=== PATIENT | male | born 1980 | race Caucasian/White ===

== ENCOUNTER 2022-03-04 15:54 | Emergency (ER) | payer OTHER ==
--- NOTE | 2022-03-04 16:07 | ED Physician Documentation ---
PD HPI MHE - Stated complaint Stated Complaint: SI/ETOH - History obtained from History obtained from: Patient, EMS - History of Present Illness Primary symptom: Suicidal ideation Contributing factors: Substance abuse - ETOH - Additional information Additional information: Patient is a 41-year-old male brought in by EMS for suicidal ideation. He states he has had suicidal thoughts for many years. He states that he got out of rehab for alcohol today and went home and immediately started drinking. He states that his plan would be to slit his throat. He also states that he does not have a psychiatrist or therapist but has been tried on several medications in the past for depression. Patient states that he has never attempted suicide before. He also goes on to state that if he were to go home today he would not harm himself. He states that he just wants to know if his is cheating on him. Review of Systems Ten Systems: 10 systems reviewed and negative Constitutional: denies: Fever, Chills Nose: denies: Rhinorrhea / runny nose, Congestion GI: denies: Vomiting, Diarrhea Skin: denies: Rash Musculoskeletal: denies: Neck pain, Back pain Neurologic: denies: Headache Psychiatric: reports: Depressed, Suicidal PD PAST MEDICAL HISTORY - Past Medical History Past Medical History: Yes Psych: Depression - Present Medications Home Medications: Ambulatory Orders Medication Instructions Recorded Confirmed atenoloL [Tenormin] 25 mg PO DAILY 03/04/22 03/04/22 - Allergies Allergies/Adverse Reactions: Allergies Allergy/AdvReac Type Severity Reaction Status Date / Time venlafaxine [From Effexor] Allergy Anxiety Verified 03/04/22 16:02 zolpidem [From Ambien] Allergy Hallucinati Verified 03/04/22 16:02 ons - Living Situation Living Situation: reports: With spouse/s.o., With family Living Arrangement: reports: At home - Social History Does the pt smoke?: No Does the pt drink ETOH?: Yes ETOH Use: Liquor Does the pt have substance abuse?: No - Family History Family history: reports: Non contributory PD ED PE NORMAL - Vitals Vital signs reviewed: Yes - General General: Alert and oriented X 3, No acute distress - HEENT HEENT: Moist mucous membranes - Neck Neck: Supple, no meningeal sign - Cardiac Cardiac: RRR, Strong equal pulses - Respiratory Respiratory: No respiratory distress, Clear bilaterally - Abdomen Abdomen: Soft, Non tender, Non distended - Back Back: No spinal TTP - Derm Derm: Warm and dry - Extremities Extremities: No edema, No calf tenderness / cord - Neuro Neuro: Alert and oriented X 3 - Psych Psych: Normal mood, Normal affect Results - Vitals Vitals: Vital Signs - 24 hr 03/04/22 03/04/22 03/04/22 16:02 18:20 23:15 Temperature 36.8 C 36.6 C Heart Rate 77 98 78 Respiratory 20 18 16 Rate Blood Pressure 143/98 H 143/93 H 116/72 O2 Saturation 97 95 98 Oxygen O2 Source Room air - Labs Labs: Laboratory Tests 03/04/22 03/04/22 03/04/22 16:09 16:09 16:09 WBC 6.1 RBC 5.66 Hgb 17.7 Hct 51.6 MCV 91.2 MCH 31.3 H MCHC 34.3 RDW 15.2 H Plt Count 101 L MPV 10.7 Neut # (Auto) 2.4 Lymph # (Auto) 3.0 [place] # (Auto) 0.3 Eos # (Auto) 0.2 Baso # (Auto) 0.1 Absolute Nucleated RBC 0.00 Nucleated RBC % 0.0 Sodium 146 H Potassium 3.4 L Chloride 106 Carbon Dioxide 21 Anion Gap 19.0 H BUN 9 Creatinine 0.9 Estimated GFR (MDRD) 92 Glucose 90 Calcium 8.9 Total Bilirubin 1.0 AST 271 H ALT 180 H Alkaline Phosphatase 81 Total Protein 7.8 Albumin 3.9 Globulin 3.9 Albumin/Globulin Ratio 1.0 Lipase 40 TSH 0.57 Urine Color Urine Clarity Urine pH Ur Specific [place] Urine Protein Urine Glucose (UA) Urine Ketones Urine Occult Blood Urine Nitrite Urine Bilirubin Urine Urobilinogen Ur Leukocyte Esterase Ur Microscopic Review Urine Culture Comments Salicylates < 6.0 Urine Opiates Screen Ur Oxycodone Screen Urine Methadone Screen Ur Propoxyphene Screen Acetaminophen < 10 L Ur Barbiturates Screen Ur Tricyclics Screen Ur Phencyclidine Scrn Ur Amphetamine Screen U Methamphetamines Scrn U Benzodiazepines Scrn Urine Cocaine Screen U Cannabinoids Screen Ethyl Alcohol 382.5 SARS-CoV-2 (PCR) 03/04/22 03/04/22 16:30 19:20 WBC RBC Hgb Hct MCV MCH MCHC RDW Plt Count MPV Neut # (Auto) Lymph # (Auto) [place] # (Auto) Eos # (Auto) Baso # (Auto) Absolute Nucleated RBC Nucleated RBC % Sodium Potassium Chloride Carbon Dioxide Anion Gap BUN Creatinine Estimated GFR (MDRD) Glucose Calcium Total Bilirubin AST ALT Alkaline Phosphatase Total Protein Albumin Globulin Albumin/Globulin Ratio Lipase TSH Urine Color YELLOW Urine Clarity CLEAR Urine pH 6.5 Ur Specific [place] 1.020 Urine Protein NEGATIVE Urine Glucose (UA) NEGATIVE Urine Ketones 15 H Urine Occult Blood NEGATIVE Urine Nitrite NEGATIVE Urine Bilirubin NEGATIVE Urine Urobilinogen 0.2 (NORMAL) Ur Leukocyte Esterase NEGATIVE Ur Microscopic Review NOT INDICATED Urine Culture Comments NOT INDICATED Salicylates Urine Opiates Screen NEGATIVE Ur Oxycodone Screen NEGATIVE Urine Methadone Screen NEGATIVE Ur Propoxyphene Screen NEGATIVE Acetaminophen Ur Barbiturates Screen NEGATIVE Ur Tricyclics Screen NEGATIVE Ur Phencyclidine Scrn NEGATIVE Ur Amphetamine Screen NEGATIVE U Methamphetamines Scrn NEGATIVE U Benzodiazepines Scrn NEGATIVE Urine Cocaine Screen NEGATIVE U Cannabinoids Screen NEGATIVE Ethyl Alcohol SARS-CoV-2 (PCR) NOT DETECTED PD MEDICAL DECISION MAKING - ED course Complexity details: reviewed results, re-evaluated patient, considered bee chicas, d/w patient, d/w quantitative consultant ED course: 41-year-old male, heavily intoxicated with alcohol. He states that he was just released from rehab for alcohol today. He is already heavily intoxicated. He is threatening suicide by slitting his neck or his wrists. He attempted to leave the emergency department several times. He was threatening towards the nursing staff. He was loud and belligerent. He states that he is going to go home by himself. He states that his is not at home. Police were contacted and came to help get the patient back to his room. Patient continued to be belligerent with the police as well. He was placed into locked restraints for safety. The patient then requested to be chemically sedated as well. He states that he can "get out of the restraints anytime I want". The [employer] was contacted several times in order to contact his command to come and be with the patient. Eventually we were able to contact his command and his lieutenant will be coming to the emergency department. His lieutenant did come to the emergency department and spoke with the patient. There has been prior suicidal ideation, but he does not know of any suicide attempts. The patient will be allowed to sober in the emergency department and be reassessed once sober. Will likely need social work and/or telepsychiatry in the morning. Patient will be signed out to the oncoming emergency department physician. This document was made in part using voice recognition software. While efforts are made to proofread this document, sound alike and grammatical errors may occur. Departure - Departure Clinical Impression: Suicidal ideation, Transaminitis Alcohol intoxication Qualifiers: Complication of substance-induced condition: uncomplicated Qualified Code(s): F10.920 - Alcohol use, unspecified with intoxication, uncomplicated Condition: Stable
[2022-03-04 16:17] LABS: BASOPHILS # (AUTO) 0.1 10^3/uL (0.0-0.1); BASOPHILS % (AUTO) 1.5 %; EOSINOPHILS # (AUTO) 0.2 10^3/uL (0.0-0.7); EOSINOPHILS % (AUTO) 3.6 %; HCT - HEMATOCRIT 51.6 % (42.0-52.0); HGB - HEMOGLOBIN 17.7 g/dL (14.0-18.0); LYMPHOCYTES % (AUTO) 50.2 %; MEAN CORPUSCULAR HEMOGLOBIN 31.3 pg (27.0-31.0); MEAN CORPUSCULAR HGB CONC 34.3 g/dL (32.0-36.0); MEAN CORPUSCULAR VOLUME 91.2 fL (80.0-94.0); MEAN PLATELET VOLUME 10.7 fL (7.4-11.4); MONOCYTES # (AUTO) 0.3 10^3/uL (0.0-1.0); MONOCYTES % (AUTO) 5.5 %; NEUTROPHILS # (AUTO) 2.4 10^3/uL (1.5-6.6); PLT - PLATELET COUNT 101 10^3/uL (130-450); RED BLOOD COUNT 5.66 10^6/uL (4.70-6.10); RED CELL DISTRIBUTION WIDTH 15.2 % (12.0-15.0); WHITE BLOOD COUNT 6.1 x10^3/uL (4.8-10.8)
[2022-03-04 16:35] LABS: ACETAMINOPHEN < 10 ug/mL (10-30); ALBUMIN 3.9 g/dL (3.2-5.5); ALKALINE PHOSPHATASE 81 IU/L (42-121); ALT ALANINE AMINOTRANSFERASE 180 IU/L (10-60); AST ASPARTATE AMINOTRANSFERASE 271 IU/L (10-42); BUN - BLOOD UREA NITROGEN 9 mg/dL (6-20); CALCIUM 8.9 mg/dL (8.5-10.3); CARBON DIOXIDE - CO2 21 mmol/L (21-32); CHLORIDE 106 mmol/L (101-111); CREATININE 0.9 mg/dL (0.6-1.2); ETOH - ETHANOL 382.5 mg/dL; GFR - MDRD 92 (>89); GLUCOSE 90 mg/dL (70-100); LIPASE 40 U/L (22-51); POTASSIUM 3.4 mmol/L (3.5-5.0); SALICYLATE < 6.0 mg/dL; SODIUM 146 mmol/L (135-145); TOTAL PROTEIN 7.8 g/dL (6.7-8.2)
[2022-03-04] MEDS ORDERED: OLANZapine 10 MG VIAL IM STA (17:51)
[2022-03-04] MEDS ORDERED: NICOTINE 14 MG PATCH TOP STA (18:00)
[2022-03-04] MEDS ORDERED: OLANZapine ODT 5 MG TABLET TL STA (18:00)
--- NOTE | 2022-03-04 18:29 | ED Physician Documentation ---
Face to Face for Restraints - Immediate Situation Face to Face Evaluation Date: 03/04/22 Face to Face Evaluation Time: 18:07 Restraint Situation: Locking Patient's Reactions to the Intervention: Physically safe, Swearing, Demanding, Other ("I'm in the [employer], I can get out of these any time I want") - Behavioral Condition Attitude: Other (angry) Behavior: Uncooperative, Belligerent, Agitated Orientation: Person, Place, Time, Situation Mood: Angry - Evaluation Review of Systems: see note Pertinent History/Illicit Drugs/Medications/Results: alcohol - Plan Need to Continue or Terminate Violent or Chemical Restraint: continue restraints
[2022-03-04 19:26] LABS: MUDS CUTOFF CONCENTRATIONS CUTOFF CONC BELOW:
[2022-03-04 19:29] LABS: BILIRUBIN,URINE NEGATIVE (NEGATIVE); GLUCOSE, URINE (UA) NEGATIVE (NEGATIVE); KETONES,URINE (UA) 15 mg/dL (NEGATIVE); LEUKOCYTE ESTERASE, URINE NEGATIVE (NEGATIVE); NITRITE,URINE NEGATIVE (NEGATIVE); OCCULT BLOOD,URINE NEGATIVE (NEGATIVE); PH,URINE 6.5 PH (5.0-7.5); PROTEIN,URINE NEGATIVE (NEGATIVE); UROBILINOGEN,URINE 0.2 (NORMAL) E.U./dL (NORMAL)
[2022-03-04 19:33] LABS: CLARITY,URINE CLEAR (CLEAR)
[2022-03-04 19:42] LABS: AMPHETAMINE SCREEN,URINE NEGATIVE (NEGATIVE); BARBITURATE SCREEN,UR NEGATIVE (NEGATIVE); BENZODIAZEPINES SCREEN, URINE NEGATIVE (NEGATIVE); COCAINE SCREEN URINE NEGATIVE (NEGATIVE); METHADONE SCREEN, URINE NEGATIVE (NEGATIVE); METHAMPHETAMINES SCREEN, URINE NEGATIVE (NEGATIVE); OPIATE SCREEN, URINE NEGATIVE (NEGATIVE); OXYCODONE SCREEN, URINE NEGATIVE (NEGATIVE); PROPOXYPHENE SCREEN, URINE NEGATIVE (NEGATIVE); THC CANNABINOID SCREEN, URINE NEGATIVE (NEGATIVE); TRICYCLIC ANTIDEPRESSANT,URINE NEGATIVE (NEGATIVE)
[2022-03-05 09:50] VITALS: BP 151/87
--- NOTE | 2022-03-05 10:24 | ED Physician Documentation ---
ED Addendum - Addendum Addendum: 03/05/22 10:18 41-year-old Delano Elliott has presented to the emergency department yesterday evening in an intoxicated state wanting to harm himself. He was belligerent last night and required restraint. This morning he is sober and remorseful and denies any suicidal ideology. He does state that he has discovered that his has been cheating on him and at the time last night he was not able to confirm this with his and he drank heavily. He is here with his command and feels safe and no longer has any suicidal thoughts. He denies access to firearms in his home and he has the support of his command for 24 hour observation until [place] We do not have social work here today and we have made a safety plan with the patient and command confirmed by myself and the RN
== END 2022-03-05 10:35 | disposition home or self-care (01) ==
LOC: EDBD → ED 15:54
DX: R45.851 Suicidal ideations (principal); F10.129 Alcohol abuse with intoxication, unspecified; Y90.7 Blood alcohol level of 200-239 mg/100 ml; R74.01 Elevation of levels of liver transaminase levels; Z78.1 Physical restraint status; Z20.822 Contact with and (suspected) exposure to COVID-19
CPT/HCPCS: 36415; 80053; 80306; 80307; 80320; 80329; 81003; 83690; 84443; 85025; 87635; 93005; 99283; 99285; A9270; 81001; 87086

== ENCOUNTER 2022-10-26 08:00 | Outpatient (CLI) | payer OTHER ==
[2022-10-26 17:47] LABS: BASOPHILS # (AUTO) 0.1 10^3/uL (0.0-0.1); BASOPHILS % (AUTO) 0.7 %; EOSINOPHILS # (AUTO) 0.1 10^3/uL (0.0-0.7); EOSINOPHILS % (AUTO) 0.7 %; HGB - HEMOGLOBIN 16.3 g/dL (14.0-18.0); LYMPHOCYTES # (AUTO) 0.9 10^3/uL (1.5-3.5); LYMPHOCYTES % (AUTO) 12.5 %; MEAN CORPUSCULAR HEMOGLOBIN 29.6 pg (27.0-31.0); MEAN CORPUSCULAR HGB CONC 34.7 g/dL (32.0-36.0); MEAN CORPUSCULAR VOLUME 85.3 fL (80.0-94.0); MEAN PLATELET VOLUME 11.7 fL (7.4-11.4); MONOCYTES # (AUTO) 0.3 10^3/uL (0.0-1.0); MONOCYTES % (AUTO) 4.4 %; NEUTROPHILS # (AUTO) 5.5 10^3/uL (1.5-6.6); NEUTROPHILS % (AUTO) 81.4 %; PLT - PLATELET COUNT 77 10^3/uL (130-450); RED BLOOD COUNT 5.51 10^6/uL (4.70-6.10); RED CELL DISTRIBUTION WIDTH 14.4 % (12.0-15.0); WHITE BLOOD COUNT 6.8 x10^3/uL (4.8-10.8)
[2022-10-26 17:54] LABS: ALBUMIN 4.8 g/dL (3.2-5.5); ALBUMIN/GLOBULIN RATIO 1.5 (1.0-2.2); BILIRUBIN,TOTAL 2.1 mg/dL (0.2-1.0); CREATININE 0.8 mg/dL (0.6-1.2); POTASSIUM 3.8 mmol/L (3.5-5.0); TOTAL PROTEIN 7.9 g/dL (6.7-8.2)
== END 2022-10-26 23:59 | disposition home or self-care (01) ==
LOC: LAB.N 08:00
PROVIDERS: ATTEND Nurse Practitioner
DX: K52.9 Noninfective gastroenteritis and colitis, unspecified (principal)
CPT/HCPCS: 36415; 80053; 82150; 83690; 85025

== ENCOUNTER 2023-03-07 | Outpatient (CLI) | payer OTHER | END 2023-03-07 23:59 | disposition critical access hospital (66) | LOC: EMS | DX: R41.82 Altered mental status, unspecified (principal); R09.89 Other specified symptoms and signs involving the circulatory and respiratory systems; T43.592A Poisoning by other antipsychotics and neuroleptics, intentional self-harm, initial encounter; Z78.1 Physical restraint status | CPT/HCPCS: A0425; A0427 ==

== ENCOUNTER 2023-03-07 00:25 | Emergency (ER) | payer OTHER ==
--- NOTE | 2023-03-07 00:38 | ED Physician Documentation ---
PD HPI MHE - Stated complaint Stated Complaint: SI/OD - History obtained from History obtained from: Patient, EMS - Additional information Additional information: HPI is from patient as well as from EMS. EMS says that 911 was called for medication overdose. Per EMS report, patient had texted his girlfriend earlier this evening a message with content that implied thoughts of self-harm. When medics arrived, they found patient unconscious and Minimally responsive to painful stimulus. His breaths were sonorous, and thus they inserted a nasal trumpet for airway protection. Upon doing so, the patient did become more awake and alert. EMS reports that patient overdosed on hydroxyzine. On my interview of the patient, patient tells me "I drank too much", "I am tired of my life". He says he drank approximately a fifth of vodka during the evening tonight. He denies suicidal intent, but tells me he has had suicidal thoughts for the past few years. He says he took 4 hydroxyzine at once tonight, but that he did so because he was anxious and wanted to sleep. He insists that because the instructions for the hydroxyzine are 1 tablet every 6 hours, he can take up to 4 per day, and thus he feels that taking 4 at once in a 24 period is not an overdose. EMS says that during transport to the hospital, the patient did say to them that he was feeling suicidal. Review of Systems Cardiac: reports: Reviewed and negative Respiratory: reports: Reviewed and negative GI: reports: Reviewed and negative PD PAST MEDICAL HISTORY - Past Medical History Cardiovascular: Hypertension Respiratory: None Neuro: None Endocrine/Autoimmune: None GI: None : None HEENT: None Psych: Depression Musculoskeletal: None Derm: None - Past Surgical History Past Surgical History: Yes - Present Medications Home Medications: Ambulatory Orders Medication Instructions Recorded Confirmed atenoloL [Tenormin] 25 mg PO DAILY 03/04/22 03/04/22 - Allergies Allergies/Adverse Reactions: Allergies Allergy/AdvReac Type Severity Reaction Status Date / Time alprazolam [From Xanax] Allergy Hallucinati Verified 03/07/23 01:08 ons venlafaxine [From Effexor] Allergy Anxiety Verified 03/07/23 01:08 zolpidem [From Ambien] Allergy Hallucinati Verified 03/07/23 01:08 ons - Social History Does the pt smoke?: No Smoking Status: Former smoker Does the pt drink ETOH?: Yes Does the pt have substance abuse?: No - Immunizations Immunizations are current?: Yes PD ED PE NORMAL - Vitals Vital signs reviewed: Yes - General General: Alert and oriented X 3, No acute distress, Well developed/nourished - Cardiac Cardiac: RRR, No murmur - Respiratory Respiratory: No respiratory distress, Clear bilaterally - Abdomen Abdomen: Soft, Non tender - Neuro Neuro: Alert and oriented X 3 Eye Opening: Spontaneous Motor: Obeys Commands Verbal: Oriented GCS Score: 15 Results - Vitals Vitals: Vital Signs - 24 hr 03/07/23 03/07/23 00:51 02:06 Temperature 36.9 C Heart Rate 98 100 Respiratory 18 18 Rate Blood Pressure 146/93 H 129/88 H O2 Saturation 97 92 Oxygen O2 Source Room air - Labs Labs: Laboratory Tests 03/07/23 03/07/23 03/07/23 00:45 01:48 01:48 WBC 5.4 RBC 4.86 Hgb 14.4 Hct 43.5 MCV 89.5 MCH 29.6 MCHC 33.1 RDW 14.9 Plt Count 83 L MPV 10.3 Neut # (Auto) 3.3 Lymph # (Auto) 1.5 [place] # (Auto) 0.4 Eos # (Auto) 0.2 Baso # (Auto) 0.1 Absolute Nucleated RBC 0.00 Nucleated RBC % 0.0 Sodium 144 Potassium 3.5 Chloride 107 Carbon Dioxide 23 Anion Gap 14.0 H BUN 7 Creatinine 0.7 Estimated GFR (MDRD) 123 Glucose 113 H Calcium 7.9 L Total Bilirubin 1.2 H AST 185 H ALT 61 H Alkaline Phosphatase 165 H Total Protein 7.3 Albumin 3.3 Globulin 4.0 Albumin/Globulin Ratio 0.8 L Lipase 44 TSH Urine Color YELLOW Urine Clarity CLEAR Urine pH 7.0 Ur Specific [place] 1.010 Urine Protein NEGATIVE Urine Glucose (UA) NEGATIVE Urine Ketones [place] Urine Occult Blood NEGATIVE Urine Nitrite NEGATIVE Urine Bilirubin NEGATIVE Urine Urobilinogen 0.2 (NORMAL) Ur Leukocyte Esterase NEGATIVE Ur Microscopic Review NOT INDICATED Urine Culture Comments NOT INDICATED Salicylates < 6.0 Urine Opiates Screen NEGATIVE Ur Oxycodone Screen NEGATIVE Urine Methadone Screen NEGATIVE Ur Propoxyphene Screen NEGATIVE Acetaminophen < 10 L Ur Barbiturates Screen NEGATIVE Ur Tricyclics Screen NEGATIVE Ur Phencyclidine Scrn NEGATIVE Ur Amphetamine Screen NEGATIVE U Methamphetamines Scrn NEGATIVE U Benzodiazepines Scrn NEGATIVE Urine Cocaine Screen NEGATIVE U Cannabinoids Screen NEGATIVE Ethyl Alcohol 321.6 03/07/23 01:48 WBC RBC Hgb Hct MCV MCH MCHC RDW Plt Count MPV Neut # (Auto) Lymph # (Auto) [place] # (Auto) Eos # (Auto) Baso # (Auto) Absolute Nucleated RBC Nucleated RBC % Sodium Potassium Chloride Carbon Dioxide Anion Gap BUN Creatinine Estimated GFR (MDRD) Glucose Calcium Total Bilirubin AST ALT Alkaline Phosphatase Total Protein Albumin Globulin Albumin/Globulin Ratio Lipase TSH 1.97 Urine Color Urine Clarity Urine pH Ur Specific [place] Urine Protein Urine Glucose (UA) Urine Ketones Urine Occult Blood Urine Nitrite Urine Bilirubin Urine Urobilinogen Ur Leukocyte Esterase Ur Microscopic Review Urine Culture Comments Salicylates Urine Opiates Screen Ur Oxycodone Screen Urine Methadone Screen Ur Propoxyphene Screen Acetaminophen Ur Barbiturates Screen Ur Tricyclics Screen Ur Phencyclidine Scrn Ur Amphetamine Screen U Methamphetamines Scrn U Benzodiazepines Scrn Urine Cocaine Screen U Cannabinoids Screen Ethyl Alcohol PD Medical Decision Making - ED course Complexity details: reviewed old records (reviewed EDMD notes from [facility] ED visit one year ago for similar issues), reviewed results, re-evaluated patient, considered differential, d/w patient ED course: On my HPI, patient strongly denies suicidal intent and repeatedly requests to be discharged. His serum alcohol level is over .320, which would indicate high potential for impaired judgment and uncertainty in reliability/veracity of HPI from patient. Thus, he is held in ED overnight pending sobriety when he can be reassessed with more confidence regarding answers he provides. Care of patient is turned over to oncoming ED physician (Dr. Saab) at end of my shift.
[2023-03-07 01:56] LABS: BASOPHILS # (AUTO) 0.1 10^3/uL (0.0-0.1); BASOPHILS % (AUTO) 1.3 %; EOSINOPHILS # (AUTO) 0.2 10^3/uL (0.0-0.7); EOSINOPHILS % (AUTO) 3.2 %; HCT - HEMATOCRIT 43.5 % (42.0-52.0); HGB - HEMOGLOBIN 14.4 g/dL (14.0-18.0); LYMPHOCYTES # (AUTO) 1.5 10^3/uL (1.5-3.5); LYMPHOCYTES % (AUTO) 27.7 %; MEAN CORPUSCULAR HEMOGLOBIN 29.6 pg (27.0-31.0); MEAN CORPUSCULAR HGB CONC 33.1 g/dL (32.0-36.0); MEAN CORPUSCULAR VOLUME 89.5 fL (80.0-94.0); MEAN PLATELET VOLUME 10.3 fL (7.4-11.4); MONOCYTES # (AUTO) 0.4 10^3/uL (0.0-1.0); MONOCYTES % (AUTO) 6.7 %; NEUTROPHILS # (AUTO) 3.3 10^3/uL (1.5-6.6); NEUTROPHILS % (AUTO) 60.9 %; PLT - PLATELET COUNT 83 10^3/uL (130-450); RED BLOOD COUNT 4.86 10^6/uL (4.70-6.10); RED CELL DISTRIBUTION WIDTH 14.9 % (12.0-15.0); WHITE BLOOD COUNT 5.4 x10^3/uL (4.8-10.8)
[2023-03-07 02:08] LABS: ACETAMINOPHEN < 10 ug/mL (10-30); ALBUMIN 3.3 g/dL (3.2-5.5); ALBUMIN/GLOBULIN RATIO 0.8 (1.0-2.2); ALKALINE PHOSPHATASE 165 IU/L (42-121); ALT ALANINE AMINOTRANSFERASE 61 IU/L (10-60); AST ASPARTATE AMINOTRANSFERASE 185 IU/L (10-42); BILIRUBIN,TOTAL 1.2 mg/dL (0.2-1.0); BUN - BLOOD UREA NITROGEN 7 mg/dL (6-20); CALCIUM 7.9 mg/dL (8.5-10.3); CARBON DIOXIDE - CO2 23 mmol/L (21-32); CHLORIDE 107 mmol/L (101-111); CREATININE 0.7 mg/dL (0.6-1.2); ETOH - ETHANOL 321.6 mg/dL; GFR - MDRD 123 (>89); GLUCOSE 113 mg/dL (70-100); LIPASE 44 U/L (22-51); POTASSIUM 3.5 mmol/L (3.5-5.0); SALICYLATE < 6.0 mg/dL; SODIUM 144 mmol/L (135-145); TOTAL PROTEIN 7.3 g/dL (6.7-8.2)
[2023-03-07 02:10] LABS: MUDS CUTOFF CONCENTRATIONS CUTOFF CONC BELOW:
[2023-03-07 02:11] LABS: BILIRUBIN,URINE NEGATIVE (NEGATIVE); GLUCOSE, URINE (UA) NEGATIVE (NEGATIVE); KETONES,URINE (UA) TRACE mg/dL (NEGATIVE); LEUKOCYTE ESTERASE, URINE NEGATIVE (NEGATIVE); NITRITE,URINE NEGATIVE (NEGATIVE); OCCULT BLOOD,URINE NEGATIVE (NEGATIVE); PROTEIN,URINE NEGATIVE (NEGATIVE); UROBILINOGEN,URINE 0.2 (NORMAL) E.U./dL (NORMAL)
[2023-03-07 02:13] LABS: CLARITY,URINE CLEAR (CLEAR)
[2023-03-07 02:22] LABS: AMPHETAMINE SCREEN,URINE NEGATIVE (NEGATIVE); BARBITURATE SCREEN,UR NEGATIVE (NEGATIVE); BENZODIAZEPINES SCREEN, URINE NEGATIVE (NEGATIVE); COCAINE SCREEN URINE NEGATIVE (NEGATIVE); METHADONE SCREEN, URINE NEGATIVE (NEGATIVE); METHAMPHETAMINES SCREEN, URINE NEGATIVE (NEGATIVE); OPIATE SCREEN, URINE NEGATIVE (NEGATIVE); OXYCODONE SCREEN, URINE NEGATIVE (NEGATIVE); PROPOXYPHENE SCREEN, URINE NEGATIVE (NEGATIVE); THC CANNABINOID SCREEN, URINE NEGATIVE (NEGATIVE); TRICYCLIC ANTIDEPRESSANT,URINE NEGATIVE (NEGATIVE)
--- NOTE | 2023-03-07 14:02 | ED Physician Documentation ---
ED Addendum - Addendum Addendum: 03/07/23 14:00 Social work evaluated the patient. He is not suicidal or homicidal. Contracts for safety. [place] He is going to rejoin the sale program for alcoholism. His feels comfortable with him at home and is comfortable taking responsibility for him. Patient will be discharged. This document was made in part using voice recognition software. While efforts are made to proofread this document, sound alike and grammatical errors may occur. Departure - Departure Disposition: 01 Home, Self Care Clinical Impression: Suicidal ideation Alcohol intoxication Qualifiers: Complication of substance-induced condition: uncomplicated Qualified Code(s): F10.920 - Alcohol use, unspecified with intoxication, uncomplicated Condition: Good Instructions: ED Alcohol Intoxication Follow-Up: [facility] [place] [Provider Group] - Within 3 Days Comments: [place]. Please follow-up as instructed by social work. You need to abstain from alcohol. Crisis Line and is available to talk to someone [email or web address] is also available to chat with someone online if you prefer. There are also many resources on this website and apps for your phone to help with your mental health You can also text the word START to [phone] to chat with someome via text.
[2023-03-07 14:18] VITALS: BP 156/103
== END 2023-03-07 14:22 | disposition home or self-care (01) ==
LOC: EDUNIT# → ED 00:25
DX: R45.851 Suicidal ideations (principal); F10.129 Alcohol abuse with intoxication, unspecified; Y90.8 Blood alcohol level of 240 mg/100 ml or more; Z87.891 Personal history of nicotine dependence
CPT/HCPCS: 36415; 80053; 80306; 80307; 80320; 80329; 81001; 81003; 83690; 84443; 85025; 87086; 99283

== ENCOUNTER 2023-08-15 01:32 | Outpatient (CLI) | payer OTHER | END 2023-08-15 01:33 | disposition critical access hospital (66) | LOC: EMS 01:32 | DX: K92.0 Hematemesis (principal) | CPT/HCPCS: A0425; A0429 ==

== ENCOUNTER 2023-08-15 01:55 | Emergency (ER) | payer OTHER ==
--- NOTE | 2023-08-15 02:01 | ED Physician Documentation ---
PD HPI NVD - Stated complaint Stated Complaint: VOMITING BLOOD - History obtained from History obtained from: Patient, EMS - Additonal information Additional information: BIBA. HPI from EMS, patient. Patient complains of hematemesis, several episodes starting at approximately 5 PM this afternoon. He is subsequently had 2-3 episodes of bright red blood per rectum. He reports noticing clots of blood in both the vomitus as well as the blood per rectum. Denies any pain. Patient was transferred from [facility] emergency department on 08/03/2023 to [facility] ([facility]) where he underwent EGD and banding of esophageal varices. Patient has history of alcoholism, admits to drinking alcohol tonight, as well. He drinks approximately a fifth of hard liquor per day. CT A/P performed at [facility] during inpatient stay revealed evidence of severe cirrhosis, fatty infiltration, minimal ascites, portal hypertension, extensive varices. Patient's prescription medications include naltrexone and Antabuse, but he stopped these latter 2 medications. Otherwise, his prescription medications that he is continue take are BuSpar, trazodone, hydroxyzine. Review of Systems Constitutional: reports: Reviewed and negative Cardiac: reports: Reviewed and negative Respiratory: reports: Reviewed and negative GI: reports: Hematemesis, Bloody / black stool. denies: Abdominal Pain, Abdominal Swelling, Nausea, Vomiting, Constipation, Diarrhea : denies: Dysuria, Frequency Skin: reports: Reviewed and negative Musculoskeletal: reports: Reviewed and negative Neurologic: reports: Reviewed and negative PD PAST MEDICAL HISTORY - Past Medical History Cardiovascular: Hypertension Respiratory: None Neuro: None Endocrine/Autoimmune: None GI: None : None HEENT: None Psych: Depression Musculoskeletal: None Derm: None - Past Surgical History Past Surgical History: Yes - Present Medications Home Medications: Ambulatory Orders Medication Instructions Recorded Confirmed atenoloL [Tenormin] 25 mg PO DAILY 03/04/22 03/04/22 - Allergies Allergies/Adverse Reactions: Allergies Allergy/AdvReac Type Severity Reaction Status Date / Time alprazolam [From Xanax] Allergy Hallucinati Verified 08/15/23 02:08 ons venlafaxine [From Effexor] Allergy Anxiety Verified 08/15/23 02:08 zolpidem [From Ambien] Allergy Hallucinati Verified 08/15/23 02:08 ons - Social History Does the pt smoke?: No Smoking Status: Former smoker Does the pt drink ETOH?: Yes Does the pt have substance abuse?: No - Immunizations Immunizations are current?: Yes PD ED PE NORMAL - Vitals Vital signs reviewed: Yes - General General: Alert and oriented X 3, No acute distress, Well developed/nourished - HEENT HEENT: Moist mucous membranes - Cardiac Cardiac: No murmur - Respiratory Respiratory: No respiratory distress, Clear bilaterally - Abdomen Abdomen: Soft, Non tender, Non distended - Derm Derm: Normal color, Warm and dry - Neuro Neuro: Alert and oriented X 3 PD ED PE EXPANDED - Cardiac Cardiac: Tachy, Regular Rhythm Results - Vitals Vitals: Vital Signs - 24 hr 08/15/23 08/15/23 08/15/23 02:04 03:32 03:55 Temperature 36.4 C L 37 C Heart Rate 120 H 100 101 H Respiratory 22 20 20 Rate Blood Pressure 131/86 H 128/74 127/85 H O2 Saturation 99 100 100 08/15/23 06:03 Temperature Heart Rate 105 H Respiratory 17 Rate Blood Pressure 115/71 O2 Saturation 94 Oxygen O2 Source Room air - Labs Labs: Laboratory Tests 08/15/23 08/15/23 08/15/23 02:13 02:13 02:13 WBC 9.2 RBC 3.49 L Hgb 11.0 L Hct 33.0 L MCV 94.6 H MCH 31.5 H MCHC 33.3 RDW 20.1 H Plt Count 111 L MPV 11.3 Neut # (Auto) 6.1 Lymph # (Auto) 1.9 [place] # (Auto) 0.9 Eos # (Auto) 0.1 Baso # (Auto) 0.2 H Absolute Nucleated RBC 0.00 Nucleated RBC % 0.0 Manual Slide Review Indicated Platelet Estimate NORMAL (130-450,000) RBC Morph Micro Appear 1+ ANISOCYTOSIS PT 17.7 H INR 1.6 H APTT 32.5 Sodium 144 Potassium 3.5 Chloride 108 Carbon Dioxide 17 L Anion Gap 19.0 H BUN 6 Creatinine 0.8 Estimated GFR (MDRD) 105 Glucose 151 H Calcium 7.6 L Total Bilirubin 3.6 H AST 195 H ALT 45 Alkaline Phosphatase 110 Total Protein 5.5 L Albumin 2.8 L Globulin 2.7 Albumin/Globulin Ratio 1.0 Lipase 15 Urine Color Urine Clarity Urine pH Ur Specific [place] Urine Protein Urine Glucose (UA) Urine Ketones Urine Occult Blood Urine Nitrite Urine Bilirubin Urine Urobilinogen Ur Leukocyte Esterase Urine RBC Urine WBC Ur Squamous Epith Cells Urine Bacteria Urine Casts Nasal Adenovirus (PCR) Nasal B. parapertussis DNA (PCR) Nasal Coronavir 229E PCR Nasal Coronavir HKU1 PCR Nasal Coronavir NL63 PCR Nasal Coronavir OC43 PCR Nasal Enterovir/Rhinovir PCR Nasal Influenza B PCR Nasal Influenza A PCR Nasal Parainfluen 1 PCR Nasal Parainfluen 2 PCR Nasal Parainfluen 3 PCR Nasal Parainfluen 4 PCR Nasal RSV (PCR) Nasal B.pertussis DNA PCR Nasal C.pneumoniae (PCR) Ag Human Metapneumo PCR Nasal M.pneumoniae (PCR) Nasal SARS-CoV-2 (PCR) Ethyl Alcohol 239.1 Blood Type Blood Type Recheck Antibody Screen 08/15/23 08/15/23 08/15/23 02:13 02:43 02:45 WBC RBC Hgb Hct MCV MCH MCHC RDW Plt Count MPV Neut # (Auto) Lymph # (Auto) [place] # (Auto) Eos # (Auto) Baso # (Auto) Absolute Nucleated RBC Nucleated RBC % Manual Slide Review Platelet Estimate RBC Morph Micro Appear PT INR APTT Sodium Potassium Chloride Carbon Dioxide Anion Gap BUN Creatinine Estimated GFR (MDRD) Glucose Calcium Total Bilirubin AST ALT Alkaline Phosphatase Total Protein Albumin Globulin Albumin/Globulin Ratio Lipase Urine Color DARK YELLOW Urine Clarity CLEAR Urine pH 6.5 Ur Specific [place] 1.020 Urine Protein 30 H Urine Glucose (UA) NEGATIVE Urine Ketones 15 H Urine Occult Blood NEGATIVE Urine Nitrite NEGATIVE Urine Bilirubin MODERATE H Urine Urobilinogen 1 (NORMAL) Ur Leukocyte Esterase NEGATIVE Urine RBC 0-5 Urine WBC 0-3 Ur Squamous Epith Cells NONE SEEN Urine Bacteria None Seen Urine Casts 6-10 Fine Granular Nasal Adenovirus (PCR) Nasal B. parapertussis DNA (PCR) Nasal Coronavir 229E PCR Nasal Coronavir HKU1 PCR Nasal Coronavir NL63 PCR Nasal Coronavir OC43 PCR Nasal Enterovir/Rhinovir PCR Nasal Influenza B PCR Nasal Influenza A PCR Nasal Parainfluen 1 PCR Nasal Parainfluen 2 PCR Nasal Parainfluen 3 PCR Nasal Parainfluen 4 PCR Nasal RSV (PCR) Nasal B.pertussis DNA PCR Nasal C.pneumoniae (PCR) Ag Human Metapneumo PCR Nasal M.pneumoniae (PCR) Nasal SARS-CoV-2 (PCR) Ethyl Alcohol Blood Type O POSITIVE Blood Type Recheck O POSITIVE Antibody Screen NEGATIVE 08/15/23 08/15/23 05:30 06:12 WBC 7.6 RBC 3.33 L Hgb 10.4 L Hct 30.8 L MCV 92.5 MCH 31.2 H MCHC 33.8 RDW 20.1 H Plt Count 101 L MPV 11.1 Neut # (Auto) 6.4 Lymph # (Auto) 0.7 L [place] # (Auto) 0.3 Eos # (Auto) 0.0 Baso # (Auto) 0.1 Absolute Nucleated RBC 0.00 Nucleated RBC % 0.0 Manual Slide Review Indicated Platelet Estimate DECREASED (<130,000) RBC Morph Micro Appear 1+ OVALOCYTES PT INR APTT Sodium Potassium Chloride Carbon Dioxide Anion Gap BUN Creatinine Estimated GFR (MDRD) Glucose Calcium Total Bilirubin AST ALT Alkaline Phosphatase Total Protein Albumin Globulin Albumin/Globulin Ratio Lipase Urine Color Urine Clarity Urine pH Ur Specific [place] Urine Protein Urine Glucose (UA) Urine Ketones Urine Occult Blood Urine Nitrite Urine Bilirubin Urine Urobilinogen Ur Leukocyte Esterase Urine RBC Urine WBC Ur Squamous Epith Cells Urine Bacteria Urine Casts Nasal Adenovirus (PCR) NOT DETECTED Nasal B. parapertussis DNA (PCR) NOT DETECTED Nasal Coronavir 229E PCR NOT DETECTED Nasal Coronavir HKU1 PCR NOT DETECTED Nasal Coronavir NL63 PCR NOT DETECTED Nasal Coronavir OC43 PCR NOT DETECTED Nasal Enterovir/Rhinovir PCR NOT DETECTED Nasal Influenza B PCR NOT DETECTED Nasal Influenza A PCR NOT DETECTED Nasal Parainfluen 1 PCR NOT DETECTED Nasal Parainfluen 2 PCR NOT DETECTED Nasal Parainfluen 3 PCR NOT DETECTED Nasal Parainfluen 4 PCR NOT DETECTED Nasal RSV (PCR) NOT DETECTED Nasal B.pertussis DNA PCR NOT DETECTED Nasal C.pneumoniae (PCR) NOT DETECTED Ag Human Metapneumo PCR NOT DETECTED Nasal M.pneumoniae (PCR) NOT DETECTED Nasal SARS-CoV-2 (PCR) NOT DETECTED Ethyl Alcohol Blood Type Blood Type Recheck Antibody Screen PD Medical Decision Making - ED course Complexity details: reviewed old records, reviewed results, re-evaluated patient, considered differential, d/w patient ED course: Records from his inpatient stay at [facility] were requested, faxed to this ED, and reviewed by me. On ED arrival, there is a small amount of blood on the EMS stretcher; I do note half-dollar sized clot of blood within the vomitus, as well. The patient did not have any more episodes of vomiting nor hematemesis during the rest of my shift. However, he had 3-4 episodes of bright red blood per rectum with clots. He was tachycardic during my shift with heart rates from the 110s to the 130s. His blood pressures were normal throughout my shift. Patient's alcohol level is 0.239. Hemoglobin is 11, and a 4-hour repeat is 10.4. INR is elevated at 1.6. Bilirubin 3.6; the notes from his inpatient stay at [facility] indicate his bilirubin was as high as 7. AST is minimally elevated (195), ALT is normal (45). Lipase is also normal (15). Mild thrombocytopenia with platelet count of 111, 101 on the 4-hour repeat. IV Protonix drip, octreotide drip are initiated and maintained during ER stay. [facility] is contacted; they said they do not have any beds and do not think they will be able to accommodate this patient for transfer. [facility] and attempt to find an appropriate bed. This process is still ongoing at the end of my shift, and thus the care of the patient is turned over to the oncoming ED physician (Dr. Hurst).
[2023-08-15] MEDS ORDERED: PANTOPRAZOLE 80 MG in SODIUM CHLORIDE 0.9% 100ML 100 ML IV STA (02:19)
[2023-08-15 02:43] LABS: BASOPHILS # (AUTO) 0.2 10^3/uL (0.0-0.1); BASOPHILS % (AUTO) 2.3 %; EOSINOPHILS # (AUTO) 0.1 10^3/uL (0.0-0.7); EOSINOPHILS % (AUTO) 1.1 %; LYMPHOCYTES # (AUTO) 1.9 10^3/uL (1.5-3.5); LYMPHOCYTES % (AUTO) 20.4 %; MEAN CORPUSCULAR HEMOGLOBIN 31.5 pg (27.0-31.0); MEAN CORPUSCULAR HGB CONC 33.3 g/dL (32.0-36.0); MEAN CORPUSCULAR VOLUME 94.6 fL (80.0-94.0); MEAN PLATELET VOLUME 11.3 fL (7.4-11.4); MONOCYTES # (AUTO) 0.9 10^3/uL (0.0-1.0); MONOCYTES % (AUTO) 9.4 %; NEUTROPHILS # (AUTO) 6.1 10^3/uL (1.5-6.6); NEUTROPHILS % (AUTO) 66.3 %; PLT - PLATELET COUNT 111 10^3/uL (130-450); RED BLOOD COUNT 3.49 10^6/uL (4.70-6.10); RED CELL DISTRIBUTION WIDTH 20.1 % (12.0-15.0); WHITE BLOOD COUNT 9.2 x10^3/uL (4.8-10.8)
[2023-08-15 02:47] LABS: SLIDE REVIEW? Indicated
[2023-08-15] MEDS ORDERED: PANTOPRAZOLE 40 MG VIAL ONE (02:48)
[2023-08-15 03:00] LABS: PARTIAL THROMBOPLASTIN TIME 32.5 secs (24.9-33.3)
[2023-08-15 03:04] LABS: INR 1.6 (0.8-1.2); PT - PROTHROMBIN TIME 17.7 secs (9.9-12.6)
[2023-08-15 03:12] LABS: PLATELET ESTIMATE, MANUAL NORMAL (130-450,000) (NORMAL); RBC MORPHOLOGY (MULTIPLE) 1+ ANISOCYTOSIS (NORMAL)
[2023-08-15 03:20] LABS: ALBUMIN 2.8 g/dL (3.2-5.5); BILIRUBIN,TOTAL 3.6 mg/dL (0.2-1.0); CALCIUM 7.6 mg/dL (8.5-10.3); CREATININE 0.8 mg/dL (0.6-1.3); ETOH - ETHANOL 239.1 mg/dL; POTASSIUM 3.5 mmol/L (3.5-4.5); TOTAL PROTEIN 5.5 g/dL (6.4-8.9)
[2023-08-15 03:56] LABS: GLUCOSE, URINE (UA) NEGATIVE (NEGATIVE); KETONES,URINE (UA) 15 mg/dL (NEGATIVE); LEUKOCYTE ESTERASE, URINE NEGATIVE (NEGATIVE); NITRITE,URINE NEGATIVE (NEGATIVE); OCCULT BLOOD,URINE NEGATIVE (NEGATIVE); PH,URINE 6.5 PH (5.0-7.5); PROTEIN,URINE 30 mg/dL (NEGATIVE); UROBILINOGEN,URINE 1 (NORMAL) E.U./dL (NORMAL)
[2023-08-15 04:05] LABS: BILIRUBIN,URINE MODERATE (NEGATIVE); CLARITY,URINE CLEAR (CLEAR); ICTOTEST,URINE POSITIVE
[2023-08-15 04:06] LABS: BACTERIA,URINE None Seen /HPF (None Seen); CASTS, URINE 6-10 Fine Granular /LPF; RBC,URINE 0-5 /HPF (0-5); SQUAMOUS EPITHELIAL CELL,UR NONE SEEN (<= Few); WBC,URINE 0-3 /HPF (0-3)
[2023-08-15] MEDS ORDERED: OCTREOTIDE 500 MCG in SODIUM CHLORIDE 0.9% 100ML 95 ML IV STA (04:41)
[2023-08-15] MEDS ORDERED: ONDANSETRON 4 MG/2 ML VIAL IVP STA (05:40)
[2023-08-15] MEDS ORDERED: LORazepam 2 MG/ML VIAL IVP STA (05:45)
[2023-08-15 06:21] LABS: BASOPHILS # (AUTO) 0.1 10^3/uL (0.0-0.1); BASOPHILS % (AUTO) 1.3 %; EOSINOPHILS % (AUTO) 0.1 %; HCT - HEMATOCRIT 30.8 % (42.0-52.0); HGB - HEMOGLOBIN 10.4 g/dL (14.0-18.0); LYMPHOCYTES # (AUTO) 0.7 10^3/uL (1.5-3.5); LYMPHOCYTES % (AUTO) 9.4 %; MEAN CORPUSCULAR HEMOGLOBIN 31.2 pg (27.0-31.0); MEAN CORPUSCULAR HGB CONC 33.8 g/dL (32.0-36.0); MEAN CORPUSCULAR VOLUME 92.5 fL (80.0-94.0); MEAN PLATELET VOLUME 11.1 fL (7.4-11.4); MONOCYTES # (AUTO) 0.3 10^3/uL (0.0-1.0); MONOCYTES % (AUTO) 4.2 %; NEUTROPHILS # (AUTO) 6.4 10^3/uL (1.5-6.6); NEUTROPHILS % (AUTO) 84.5 %; PLT - PLATELET COUNT 101 10^3/uL (130-450); RED BLOOD COUNT 3.33 10^6/uL (4.70-6.10); RED CELL DISTRIBUTION WIDTH 20.1 % (12.0-15.0); WHITE BLOOD COUNT 7.6 x10^3/uL (4.8-10.8)
[2023-08-15 06:34] LABS: B. PARAPERTUSSIS- RESP PCR PAN NOT DETECTED; B. PERTUSSIS- RESP PCR PANEL NOT DETECTED; C. PNEUMONIAE- RESP PCR PANEL NOT DETECTED; CORONAVIRUS 229E-RESP PCR NOT DETECTED; CORONAVIRUS HKU1-RESP PCR NOT DETECTED; CORONAVIRUS NL63-RESP PCR NOT DETECTED; CORONAVIRUS OC43-RESP PCR NOT DETECTED; HUMAN METAPNEUMOVIRUS NOT DETECTED; INFLUENZA A- RESP PCR PANEL NOT DETECTED; INFLUENZA B - RESP PCR PANEL NOT DETECTED; M. PNEUMONIAE- RESP PCR PANEL NOT DETECTED; PARAINFLUENZA VIRUS 1 NOT DETECTED; PARAINFLUENZA VIRUS 2 NOT DETECTED; PARAINFLUENZA VIRUS 3 NOT DETECTED; PARAINFLUENZA VIRUS 4 NOT DETECTED; RHINOVIRUS/ENTEROVIRUS NOT DETECTED; RSV- RESP PCR PANEL NOT DETECTED; SARS-CoV-2 -RESP PCR PANEL NOT DETECTED
[2023-08-15 06:41] LABS: SLIDE REVIEW? Indicated
[2023-08-15 07:02] LABS: PLATELET ESTIMATE, MANUAL DECREASED (<130,000) (NORMAL)
[2023-08-15 08:18] VITALS: BP 118/81; O2SAT 96
--- NOTE | 2023-08-15 08:40 | ED Physician Documentation ---
ED Addendum - Addendum Addendum: Earl Wick is a 42-year-old male with history of alcoholism was recently had banding done at [facility] in [place] about 10 days ago. He presented to our emergency department with vomiting bright red blood bright red blood per rectum and tachycardia after drinking 750 mill liters of vodka. He was evaluated by Dr. Bradley and stabilized placed on drips of octeotride and pantoprozole. At shift change arrangements are made for transfer of the patient to [facility] to their emergency department for further evaluation. He has not had further vomiting since prior to arrival to the ED. He has had 4 bloody bowel movements and remains tachycardic. We evaluated our ability to care for this patient in our hospital and found we lack adequate resources to care for this patient in the event of further bleeding. We lack the potential for having to give multiple units of blood even if our surgeon was willing to attempt banding. This patient is a potential for rapid decompensation has unstable vital signs with HR to 120-130 and we have transported the patient by helicopter to prevent excess of out of hospital time. Impression: UGI bleed with varacies Plan: transfer to [facility] ED for further evaluation Dr. Vigil accepting.
== END 2023-08-15 08:38 | disposition short-term general hospital (02) ==
LOC: EDUNIT# → ED 01:55
DX: K74.60 Unspecified cirrhosis of liver (principal); I85.11 Secondary esophageal varices with bleeding; R74.01 Elevation of levels of liver transaminase levels; R79.1 Abnormal coagulation profile; R00.0 Tachycardia, unspecified; Z87.891 Personal history of nicotine dependence; Z20.822 Contact with and (suspected) exposure to COVID-19
CPT/HCPCS: 36415; 80053; 80320; 81001; 83690; 85025; 85610; 85730; 86850; 86900; 86901; 87633; 93005; 96374; 96375; 99285; J2060; J2354